=== PATIENT | female | born 1950 | race Caucasian/White ===

== ENCOUNTER 2021-06-01 09:45 | Emergency (ER) | payer MEDICARE ==
[2021-06-01 11:50] LABS: CHLORIDE,CL 102 mmol/L (98-107); SODIUM,NA 139 mmol/L (136-145)
[2021-06-01 11:55] LABS: ANION GAP 10.3 mmol/L (5-15)
--- NOTE | 2021-06-01 12:03 | EDM.PDOC ---
ED HPI GENERAL MEDICAL PROBLEM - General Chief Complaint: Respiratory Problem Stated Complaint: BAD COUGH Time Seen by Provider: 06/01/21 10:45 Source of Information: Reports: Patient, RN, RN Notes Reviewed History Limitations: Reports: No Limitations - History of Present Illness INITIAL COMMENTS - FREE TEXT/NARRATIVE: Patient is a 71-year-old female who presents to ER with complaint of cough, congestion, and green sputum production for the past week. Patient states history of asthma, past smoker. States she does use Advair. Patient denies any fever, chills, nausea, vomiting, diarrhea. States she does feel some pressure in the chest with the chest congestion. Patient states her granddaughter was positive for Covid x1 week ago. Patient states she has been quarantining at home for the past week since she is known that her granddaughter had Covid. Onset: Gradual - Related Data Allergies Allergy/AdvReac Type Severity Reaction Status Date / Time latex Allergy Rash Verified 06/01/21 10:26 nickel [Nickel] Allergy Edema Verified 06/01/21 10:26 Home Meds: Home Meds Acetaminophen [Tylenol] 650 mg PO ASDIRECTED PRN 06/28/14 [History] Albuterol [Proventil HFA] 2 puff INH Q4H 06/28/14 [History] Alendronate [Fosamax] 1 tab PO Q7D 06/28/14 [History] Calcium Carb & Citrate/Vit D3 [Calcium + Vitamin D3 Caplet] 1 tab PO DAILY 06/28/14 [History] Calcium Carbonate [Tums] 1 tab PO QID PRN 06/28/14 [History] Cholecalciferol (Vitamin D3) [Vitamin D3] 1,000 units PO BID 06/28/14 [History] Clobetasol [Temovate 0.05% Crm] 1 applic TOP BID 06/28/14 [History] Docusate Sodium [Colace] 1 cap PO ASDIRECTED PRN 06/28/14 [History] Ergocalciferol (Vitamin D2) [Vitamin D2] 1 cap PO Q7D 06/28/14 [History] Fluticasone/Salmeterol [Advair 250-50] 1 puff INH BID 06/28/14 [History] Kenalog 0.5% Cream 1 applic TOP BID 06/28/14 [History] Mupirocin Oint [Bactroban Oint] 1 applic TOP TID PRN 06/28/14 [History] Omeprazole [Prilosec] 1 tab PO DAILY 06/28/14 [History] Sertraline HCl [Zoloft] 1 tab PO DAILY 06/28/14 [History] glipiZIDE [Glipizide ER] 1 tab PO DAILY 06/28/14 [History] metFORMIN [Glucophage] 1,000 mg PO BID 06/28/14 [History] Past Medical History Respiratory History: Reports: Asthma Psychiatric History: Reports: Anxiety Social & Family History - Tobacco Use Tobacco Use Status *Q: Former Tobacco User Years of Tobacco use: 41 Used Tobacco, but Quit: Yes Month/Year Tobacco Last Used: 08/2000 ED ROS GENERAL - Review of Systems Review Of Systems: Comprehensive ROS is negative, except as noted in HPI. ED EXAM, GENERAL - Physical Exam Exam: See Below Exam Limited By: No Limitations General Appearance: Alert, WD/WN, No Apparent Distress Eye Exam: Bilateral Eye: EOMI, Normal Inspection Ears: Normal External Exam, Hearing Grossly Normal Nose: Normal Inspection Throat/Mouth: Normal Inspection, Normal Voice, No Airway Compromise Head: Atraumatic, Normocephalic Neck: Normal Inspection, Supple, Non-Tender, Full Range of Motion Respiratory/Chest: No Respiratory Distress, Lungs Clear, No Accessory Muscle Use, Chest Non-Tender, Decreased Breath Sounds Cardiovascular: Normal Peripheral Pulses, Regular Rate, Rhythm, No Edema, No Gallop, No JVD, No Murmur, No Rub Peripheral Pulses: 2+: Radial (L), Radial (R) GI/Abdominal: Normal Bowel Sounds, Soft, Non-Tender (Female) Exam: Deferred Rectal (Female) Exam: Deferred Back Exam: Normal Inspection, Full Range of Motion, NT Extremities: Normal Inspection, Normal Range of Motion, Non-Tender, Normal Capillary Refill, No Pedal Edema Neurological: Alert, Oriented, CN II-XII Intact, Normal Cognition, Normal Gait, Normal Reflexes, No Motor/Sensory Deficits Psychiatric: Normal Affect, Normal Mood Skin Exam: Warm, Dry, Intact, Normal Color, No Rash Lymphatic: No Adenopathy Course - Vital Signs Last Recorded V/S: Last Vital Signs Temp 99.8 F 06/01/21 09:55 Pulse 89 06/01/21 09:55 Resp 16 06/01/21 09:55 BP 113/65 06/01/21 09:55 Pulse Ox 94 L 06/01/21 09:55 - Orders/Labs/Meds Labs: Laboratory Tests 06/01/21 06/01/21 06/01/21 Range/Units 10:34 11:22 11:22 WBC 4.8 (4.0-10.0) x10^3/uL RBC 4.66 (4.00-5.50) x10^6/uL Hgb 13.2 (12.0-16.0) g/dL Hct 39.6 (33.0-47.0) % MCV 85.0 (78.0-93.0) fL MCH 28.3 (26.0-32.0) pg MCHC 33.3 (32.0-36.0) g/dL RDW Coeff of Prasanth 11.2 (10.0-15.0) % Plt Count 185 (130-400) x10^3/uL Add Manual Diff Yes Neutrophils % (Manual) 75 (50-80) % Band Neutrophils % 9 H (0-6) % Lymphocytes % (Manual) 10 L (25-50) % Monocytes % (Manual) 6 (2-11) % Absolute Neutrophils 4.0 (1.8-7.7) x10^3/uL Lymphocytes # (Manual) 0.5 L (1.0-4.8) x10^3/uL Monocytes # (Manual) 0.3 (0.0-0.8) x10^3/uL Platelet Estimate Adequate Sodium 139 (136-145) mmol/L Potassium 3.3 L (3.5-5.1) mmol/L Chloride 102 (98-107) mmol/L Carbon Dioxide 30 (21-32) mmol/L Anion Gap 10.3 (5-15) mmol/L BUN 11 (7-18) mg/dL Creatinine 0.8 (0.55-1.02) mg/dL Est Cr Clr Drug Dosing TNP Estimated GFR (MDRD) > 60 Glucose 137 H (70-99) mg/dL Calcium 8.4 L (8.5-10.1) mg/dL Corrected Calcium 8.9 (8.5-10.1) mg/dL Total Bilirubin 0.4 (0.2-1.0) mg/dL AST 25 (15-37) U/L ALT 43 (14-59) U/L Alkaline Phosphatase 86 (46-116) U/L C-Reactive Protein 0.3 (<=0.9) mg/dL Total Protein 7.6 (6.4-8.2) g/dL Albumin 3.4 (3.4-5.0) g/dL Globulin 4.2 Albumin/Globulin Ratio 0.81 SARS CoV-2 RNA Rapid ROASLINA Positive H (NEGATIVE) - Radiology Interpretation Free Text/Narrative:: Chest xray: No acute findings See rad report Departure - Departure Time of Disposition: 12:26 Disposition: Home, Self-Care 01 Condition: Good Clinical Impression: COVID - Discharge Information *PRESCRIPTION DRUG MONITORING PROGRAM REVIEWED*: No *COPY OF PRESCRIPTION DRUG MONITORING REPORT IN PATIENT SANDEEP: No Instructions: 10 Things You Can Do to Manage Your COVID-19 Symptoms at Home - [facility] (03/01/2021), COVID-19: How to Protect Yourself and Others - [facility], Symptoms of COVID-19 - [facility] (10/08/2020), COVID-19: Quarantine vs. Isolation - [facility] (08/02/2020), COVID-19: What to Do If You Are Sick- [facility] (10/31/2020) Referrals: Alice Toscano MD [Primary Care Provider] - Forms: ED Department Discharge Additional Instructions: Quarantine at home for 10 days from start of symptoms If [place] [facility] or Public Health does not reach out to you on Thursday, Please call them with additional questions and definitive time for quarantine Return to ER with any worsening of symptoms Follow up with your primary care facility if no improvement Drink plenty of water and stay hydrated May use over the counter medications such as Tylenol as directed for discomfort May use Robitussin over the counter as directed for cough RX: Prednisone 20mg, 2 tablets orally once daily for 5 days Sepsis Event Note (ED) - Focused Exam Vital Signs: Vital Signs Temp Pulse Resp BP Pulse Ox 06/01/21 09:55 99.8 F 89 16 113/65 94 L
--- NOTE | 2021-06-01 12:03 | CR ---
[id number] RAD/RAD Chest PA or AP 1V EXAM: RAD Chest PA or AP 1V INDICATION: CHEST PAIN. COMPARISON: None. DISCUSSION: Cardiomediastinal silhouette is normal in size and contour. No infiltrate, effusion, pneumothorax, or edema. Pulmonary hyperinflation. Left basilar subsegmental atelectasis and/or scarring. IMPRESSION: No acute cardiopulmonary abnormality. Anish Mullen DO 06/01/21 1202 Thank you for allowing us to participate in the care of your patient.
== END 2021-06-01 12:26 | disposition home or self-care (01) ==
LOC: VM.ED 09:45
DX: U07.1 COVID-19 (principal); J45.909 Unspecified asthma, uncomplicated; Z87.891 Personal history of nicotine dependence; Z91.040 Latex allergy status; Z91.048 Other nonmedicinal substance allergy status; Z79.899 Other long term (current) drug therapy
CPT/HCPCS: 36415; 71045; 80053; 85025; 86140; 99283-25; 99284; U0002

== ENCOUNTER 2022-02-09 18:48 | Emergency (ER) | payer MEDICARE, OTHER ==
[2022-02-09] MEDS ORDERED: Sodium Chloride 0.9% 10 ML Syringe FLUSH PRN (19:32)
[2022-02-09] MEDS ORDERED: Ondansetron 4 MG/2 ML SDV IVPUSH ONE (19:34)
[2022-02-09] MEDS ORDERED: Lactated Ringers 1,000 ML IV ONE (19:34)
[2022-02-09 20:04] LABS: PTT,PARTIAL THROMBOPLSTIN TIME 26.6 SEC (20.5-30.9)
[2022-02-09 20:18] LABS: CHLORIDE,CL 94 mmol/L (98-107); SODIUM,NA 132 mmol/L (136-145)
[2022-02-09 20:22] LABS: ANION GAP 15.2 mmol/L (5-15); ESTIMATED GFR 44 mL/min (>=60)
[2022-02-09] MEDS ORDERED: methylPREDNISolone Sodium Succinate 125 MG/2 ML SDV IVPUSH ONE (20:33)
[2022-02-09] MEDS ORDERED: Take Home: Doxycycline 100 MG Tab, 4 Tab Pack PO ONE (20:46)
== END 2022-02-09 22:00 | disposition home or self-care (01) ==
LOC: VM.ED 18:48
DX: J44.1 Chronic obstructive pulmonary disease with (acute) exacerbation (principal); E86.0 Dehydration; Z20.822 Contact with and (suspected) exposure to COVID-19; Z91.040 Latex allergy status; Z88.8 Allergy status to other drugs, medicaments and biological substances; Z87.891 Personal history of nicotine dependence
CPT/HCPCS: 71045; 80053; 83605; 83735; 84100; 84484; 85025; 85610; 85730; 86140; 93010; 96361; 96374; 99284; 99285-25; A9270-GY; J2405; J3490; J7120; U0002

== ENCOUNTER 2022-09-18 07:04 | Day surgery (SDC) | payer MEDICARE, OTHER ==
[~2022-09-18 07:04] MED LIST: Lactated Ringers 1,000 ML IV SCH
[2022-09-18] MEDS ORDERED: Propofol 200 MG/20 ML SDV ONE (08:06)
[2022-09-18] MEDS ORDERED: fentaNYL 100 MCG/2 ML SDV ONE (08:06)
== END 2022-09-18 10:25 | disposition home or self-care (01) ==
LOC: VM.SDS 07:04
PROVIDERS: ATTEND Family Medicine
DX: K31.A0 Gastric intestinal metaplasia, unspecified (principal); K44.9 Diaphragmatic hernia without obstruction or gangrene; K29.60 Other gastritis without bleeding; K31.89 Other diseases of stomach and duodenum; B96.81 Helicobacter pylori [H. pylori] as the cause of diseases classified elsewhere; F32.A Depression, unspecified; E11.9 Type 2 diabetes mellitus without complications; J45.909 Unspecified asthma, uncomplicated; J43.1 Panlobular emphysema; M19.90 Unspecified osteoarthritis, unspecified site; E55.9 Vitamin D deficiency, unspecified; E78.00 Pure hypercholesterolemia, unspecified; K21.9 Gastro-esophageal reflux disease without esophagitis; K22.70 Barrett's esophagus without dysplasia; Z91.040 Latex allergy status; Z91.048 Other nonmedicinal substance allergy status; Z98.890 Other specified postprocedural states; Z79.899 Other long term (current) drug therapy; Z79.84 Long term (current) use of oral hypoglycemic drugs; Z87.891 Personal history of nicotine dependence
CPT/HCPCS: 00731; 82947; 88305; J2704; J3010; J7120